=== PATIENT | female | born 1950 | race Caucasian/White ===

== ENCOUNTER 2016-07-25 13:18 | Outpatient (CLI) | payer MEDICARE | END 2016-07-25 13:19 | disposition home or self-care (01) | DX: R00.2 Palpitations (principal) ==

== ENCOUNTER 2016-12-18 13:54 | Outpatient (CLI) | payer MEDICARE | END 2016-12-18 13:55 | disposition home or self-care (01) | LOC: SC 13:54 | PROVIDERS: ATTEND Nurse Practitioner Family | DX: G47.33 Obstructive sleep apnea (adult) (pediatric) (principal) | CPT/HCPCS: 99214; G0463; 99212 ==

== ENCOUNTER 2017-07-17 08:00 | Outpatient (CLI) | payer MEDICARE ==
[2017-07-17 12:59] LABS: ALBUMIN 4.1 g/dL (3.2-5.5); ALBUMIN/GLOBULIN RATIO 1.1 (1.0-2.2); ALKALINE PHOSPHATASE 36 IU/L (42-121); ALT ALANINE AMINOTRANSFERASE 19 IU/L (10-60); AST ASPARTATE AMINOTRANSFERASE 24 IU/L (10-42); BILIRUBIN,TOTAL 0.8 mg/dL (0.2-1.0); BUN - BLOOD UREA NITROGEN 16 mg/dL (6-20); CALCIUM 8.7 mg/dL (8.5-10.3); CARBON DIOXIDE - CO2 27 mmol/L (21-32); CHLORIDE 105 mmol/L (101-111); CHOL/HDL RATIO 3.7 (<4.4); CHOLESTEROL 155 mg/dL; GFR - MDRD 55 (>89); GLUCOSE 98 mg/dL (70-100); HDL CHOLESTEROL 42 mg/dL; LDL CHOLESTEROL,CALCULATED 77 mg/dL; LDL/HDL RATIO 1.8 (<4.4); SODIUM 139 mmol/L (135-145); TOTAL PROTEIN 7.7 g/dL (6.7-8.2); VLDL CHOLESTEROL 36 mg/dL
== END 2017-07-17 08:01 | disposition home or self-care (01) ==
LOC: LAB.WCP 08:00
PROVIDERS: ATTEND Physician Assistant Medical
DX: I10 Essential (primary) hypertension (principal)
CPT/HCPCS: 36415; 80053; 80061; 83721

== ENCOUNTER 2017-12-17 15:51 | Outpatient (CLI) | payer MEDICARE | END 2017-12-17 15:52 | disposition home or self-care (01) | LOC: SC 15:51 | PROVIDERS: ATTEND Nurse Practitioner Family | DX: G47.33 Obstructive sleep apnea (adult) (pediatric) (principal) | CPT/HCPCS: 99214; G0463; 99212 ==

== ENCOUNTER 2018-01-12 12:17 | Outpatient (CLI) | payer MEDICARE | END 2018-01-12 12:18 | disposition home or self-care (01) | LOC: DI 12:17 | PROVIDERS: ATTEND Family Medicine | DX: I48.0 Paroxysmal atrial fibrillation (principal); I77.810 Thoracic aortic ectasia | CPT/HCPCS: 93306 ==

== ENCOUNTER 2018-04-26 09:23 | Outpatient (CLI) | payer MEDICARE ==
--- NOTE | 2018-04-29 10:36 | Mammography Report ---
Reason: SCREENING MAMMO Procedure Date: 04/26/2018 Accession Number: [id number] / [id number] Procedure: MGN - Screening Mammo Dig Bilat CPT Code: FULL RESULT: EXAM: Screening Mammo Dig Bilat DATE: 04/26/2018 9:43 AM CLINICAL HISTORY: 68-year-old female for screening mammogram. TECHNIQUE: Bilateral CC and MLO views were obtained. COMPARISON: 11/23/2015, 08/18/2014, 07/08/2013. FINDINGS: The breasts demonstrate scattered fibroglandular densities bilaterally. No suspicious masses, clustered microcalcifications, or regions of architectural distortion are identified. IMPRESSION: Negative examination RECOMMENDATION: Routine annual screening unless otherwise clinically indicated. BIRADS CATEGORY 1: Negative STANDARD QUALIFYING STATEMENTS: 1. This examination was reviewed with the aid of Computer-Aided Detection (CAD). 2. A negative or benign imaging report should not delay biopsy if clinically suspicious findings are present. Consider surgical consultation if warrented. More than 5% of cancers are not identified by imaging. 3. Dense breasts may obscure an underlying neoplasm. 4. This examination was reviewed without the aid of 3D breast imaging (tomosynthesis).
== END 2018-04-26 09:24 | disposition home or self-care (01) ==
LOC: DI.N 09:23
DX: Z12.31 Encounter for screening mammogram for malignant neoplasm of breast (principal)
CPT/HCPCS: 77067

== ENCOUNTER 2018-11-01 08:00 | Outpatient (CLI) | payer MEDICARE | END 2018-11-01 23:59 | disposition home or self-care (01) | LOC: LAB.WCP 08:00 | PROVIDERS: ATTEND Family Medicine | DX: R39.15 Urgency of urination (principal) | CPT/HCPCS: 87086 ==

== ENCOUNTER 2019-05-23 08:21 | Outpatient (CLI) | payer MEDICARE ==
--- NOTE | 2019-05-26 10:41 | Mammography Report ---
Reason: SCREENING MAMMO Procedure Date: 05/23/2019 Accession Number: [id number] / [id number] Procedure: MGN - Screening Mammo Dig Bilat CPT Code: Final Report FULL RESULT: EXAM: Screening Mammo Dig Bilat DATE: 05/23/2019 8:42 AM CLINICAL HISTORY: The patient is an asymptomatic 68-year-old female with no reported personal or family history of breast cancer. TECHNIQUE: (B) - Bilateral CC and MLO views were obtained. COMPARISON: 04/26/2018, 11/23/2015, 08/18/2014, 07/08/2013 PARENCHYMAL PATTERN: (A) - The breasts demonstrate scattered fibroglandular densities bilaterally. FINDINGS: There are no suspicious masses, calcifications, or areas of distortion. IMPRESSION: Negative examination. BI-RADS category 1. RECOMMENDATION: (ANNUAL) - Recommend routine annual screening mammography. BI-RADS CATEGORY: (1) - Negative. STANDARD QUALIFYING STATEMENTS: 1. This examination was not reviewed with the aid of Computer-Aided Detection (CAD). 2. A negative or benign imaging report should not preclude biopsy if clinically suspicious findings are present. 3. Dense breasts may obscure an underlying neoplasm.
== END 2019-05-23 08:22 | disposition home or self-care (01) ==
LOC: DI.N 08:21
DX: Z12.31 Encounter for screening mammogram for malignant neoplasm of breast (principal)
CPT/HCPCS: 77067

== ENCOUNTER 2019-06-27 08:30 | Outpatient (CLI) | payer MEDICARE ==
[2019-06-27 13:13] LABS: BASOPHILS # (AUTO) 0.1 10^3/uL (0.0-0.1); EOSINOPHILS # (AUTO) 0.2 10^3/uL (0.0-0.7); EOSINOPHILS % (AUTO) 2.4 %; HGB - HEMOGLOBIN 14.2 g/dL (12.0-16.0); LYMPHOCYTES # (AUTO) 1.5 10^3/uL (1.5-3.5); LYMPHOCYTES % (AUTO) 24.1 %; MEAN CORPUSCULAR HEMOGLOBIN 30.5 pg (27.0-31.0); MEAN CORPUSCULAR HGB CONC 31.9 g/dL (32.0-36.0); MEAN CORPUSCULAR VOLUME 95.7 fL (81.0-99.0); MEAN PLATELET VOLUME 11.9 fL (7.9-10.8); MONOCYTES # (AUTO) 0.5 10^3/uL (0.0-1.0); MONOCYTES % (AUTO) 7.4 %; NEUTROPHILS % (AUTO) 64.8 %; PLT - PLATELET COUNT 255 10^3/uL (130-450); RED BLOOD COUNT 4.65 10^6/uL (4.20-5.40); RED CELL DISTRIBUTION WIDTH 13.5 % (12.0-15.0); WHITE BLOOD COUNT 6.2 x10^3/uL (4.8-10.8)
[2019-06-27 14:03] LABS: ALBUMIN 4.1 g/dL (3.2-5.5); ALBUMIN/GLOBULIN RATIO 1.1 (1.0-2.2); ALKALINE PHOSPHATASE 37 IU/L (42-121); ALT ALANINE AMINOTRANSFERASE 15 IU/L (10-60); AST ASPARTATE AMINOTRANSFERASE 19 IU/L (10-42); BILIRUBIN,TOTAL 0.7 mg/dL (0.2-1.0); BUN - BLOOD UREA NITROGEN 15 mg/dL (6-20); CALCIUM 9.1 mg/dL (8.5-10.3); CARBON DIOXIDE - CO2 28 mmol/L (21-32); CHLORIDE 104 mmol/L (101-111); CHOL/HDL RATIO 3.5 (<4.4); CHOLESTEROL 152 mg/dL; CREATININE 1.1 mg/dL (0.4-1.0); GFR - MDRD 49 (>89); GLUCOSE 100 mg/dL (70-100); HDL CHOLESTEROL 44 mg/dL; LDL CHOLESTEROL,CALCULATED 74 mg/dL; LDL/HDL RATIO 1.7 (<4.4); SODIUM 137 mmol/L (135-145); TOTAL PROTEIN 7.8 g/dL (6.7-8.2); VLDL CHOLESTEROL 34 mg/dL
== END 2019-06-27 23:59 | disposition home or self-care (01) ==
LOC: LAB.WCP 08:30
PROVIDERS: ATTEND Physician Assistant Medical
DX: I10 Essential (primary) hypertension (principal); E78.1 Pure hyperglyceridemia; I48.0 Paroxysmal atrial fibrillation
CPT/HCPCS: 36415; 80053; 80061; 83721; 84443; 85025

== ENCOUNTER 2020-05-17 11:00 | Outpatient (CLI) | payer MEDICARE ==
[2020-05-17 18:42] LABS: BASOPHILS # (AUTO) 0.1 10^3/uL (0.0-0.1); BASOPHILS % (AUTO) 1.1 %; EOSINOPHILS # (AUTO) 0.2 10^3/uL (0.0-0.7); EOSINOPHILS % (AUTO) 2.8 %; HGB - HEMOGLOBIN 14.5 g/dL (12.0-16.0); LYMPHOCYTES # (AUTO) 1.6 10^3/uL (1.5-3.5); LYMPHOCYTES % (AUTO) 29.1 %; MEAN CORPUSCULAR HEMOGLOBIN 30.7 pg (27.0-31.0); MEAN CORPUSCULAR HGB CONC 31.2 g/dL (32.0-36.0); MEAN CORPUSCULAR VOLUME 98.3 fL (81.0-99.0); MEAN PLATELET VOLUME 11.6 fL (7.9-10.8); MONOCYTES # (AUTO) 0.4 10^3/uL (0.0-1.0); MONOCYTES % (AUTO) 7.9 %; NEUTROPHILS # (AUTO) 3.1 10^3/uL (1.5-6.6); NEUTROPHILS % (AUTO) 58.9 %; PLT - PLATELET COUNT 269 10^3/uL (130-450); RED BLOOD COUNT 4.73 10^6/uL (4.20-5.40); RED CELL DISTRIBUTION WIDTH 13.2 % (12.0-15.0); WHITE BLOOD COUNT 5.3 x10^3/uL (4.8-10.8)
[2020-05-17 19:06] LABS: BUN - BLOOD UREA NITROGEN 15 mg/dL (6-20); CALCIUM 9.2 mg/dL (8.5-10.3); CARBON DIOXIDE - CO2 28 mmol/L (21-32); CHLORIDE 102 mmol/L (101-111); CHOL/HDL RATIO 3.6 (<4.4); CHOLESTEROL 175 mg/dL; GLUCOSE 95 mg/dL (70-100); HDL CHOLESTEROL 48 mg/dL; LDL CHOLESTEROL,CALCULATED 90 mg/dL; LDL/HDL RATIO 1.9 (<4.4); SODIUM 140 mmol/L (135-145); VLDL CHOLESTEROL 37 mg/dL
== END 2020-05-17 23:59 | disposition home or self-care (01) ==
LOC: LAB.WCP 11:00
PROVIDERS: ATTEND Internal Medicine Cardiovascular Disease
DX: I10 Essential (primary) hypertension (principal); E78.5 Hyperlipidemia, unspecified
CPT/HCPCS: 36415; 80048; 80061; 83721; 85025

== ENCOUNTER 2020-06-14 15:20 | Outpatient (CLI) | payer MEDICARE ==
--- NOTE | 2020-06-15 09:54 | Mammography Report ---
BILATERAL DIGITAL SCREENING MAMMOGRAM 3D/2D: 06/14/2020 CLINICAL: Routine screening. Comparison is made to exams dated: 05/23/2019 mammogram, 04/26/2018 mammogram, 11/23/2015 mammogram, mammogram, 07/08/2013 mammogram, and 07/17/2012 mammogram - [facility]. The re are scattered fibroglandular elements in both breasts. No significant masses, calcifications, or other findings are seen in either breast. There has been no significant interval change. IMPRESSION: NEGATIVE There is no mammographic evidence of malignancy. A 1 year screening mammogram is recommended. This exam was interpreted at Station ID: [id number]. NOTE: For mammograms, a report in lay terms will be sent to the patient. Approximately 15% of breast malignancies will not be visualized mammographically. In the management of a palpable breast mass, a negative mammogram must not discourage biopsy of a clinically suspicious lesion. Electronically Signed By: Sudheer quintana/fer:06/14/2020 16:18:34 ACR BI-RADS Category 1: Negative 3341F PARENCHYMAL PATTERN: (A) - The breast(s) demonstrate(s) scattered fibroglandular densities. BI-RADS CATEGORY: (1) - 1 RECOMMENDATION: (ANNUAL) - Recommend routine annual screening mammography. [id number] 1 year screening LATERALITY: (B)
== END 2020-06-14 15:21 | disposition home or self-care (01) ==
LOC: DI.N 15:20
DX: Z12.31 Encounter for screening mammogram for malignant neoplasm of breast (principal)
CPT/HCPCS: 77067

== ENCOUNTER 2020-06-28 13:43 | Outpatient (CLI) | payer MEDICARE ==
--- NOTE | 2020-06-28 14:25 | SLEEP CARE CONSULTATION ---
Information from patient questionnaire entered by Iliana Persaud. I have reviewed and concur with the information entered by Iliana Persaud. This document represents the service I personally performed and the decisions made by me, Ashly Lopez MD, [facility] [place] History of Present Illness Service Date and Time: 06/28/2020 1343 Previous diagnosis: Moderate, Obstructive Sleep Apnea-Hypopnea Syndrome AHI: 18.8 Reason for follow up: annual (Last seen 11/2017) Equipment type: BiPAP Equipment obtained from: [employer] Year and Where: [address] [facility] Type of Sleep Study: Polysomnography HPI additional information: HPI: Ms. Carrera returned today for annual follow up of BiPAP therapy. She was diagnosed to have moderate obstructive sleep apnea-hypopnea syndrome. The patient gets her supplies from [employer]. She wears a Respironics Wisp nasal mask. She continues to use the device nightly and all through the night. The c ompliance report shows usage in 28 nights out of the past 30 nights, averaging 7.6 hours a night. The > 4 hour compliance rate for the past 365 days is 93%. She complained of no particular problem with the device such as soreness on the face, dry nose, epistaxis, nasal congestion or headache. She thinks that the pressure of 14/8 cmH2O is comfortable. On the CPAP therapy she notices improvement in her sleep quality, and that she wakes up feeling fresher in the morning and more awake/alert during the day. [place] Sleepiness Scale score is 3. The average residual AHI is 0.4; and average time in large leak per day is 28 seconds. Subjective Initial [place] Sleepiness Scale score: 7 (in 2013) Allergies and Home Medications Drug allergies reviewed: Yes Home medication list reviewed: Yes Review of Systems Review of systems same as previous: Yes Physical Exam Vital signs obtained and entered by: To minimize the risk of COVID-19 exposure, detailed exam was not performed. Height: 5 ft 8 in Weight: 280 lb Body Mass Index: 42.5 BMI Classification: Morbidly Obese Impression and Plan IMPRESSION: 1. Obstructive Sleep Apnea-Hypopnea Syndrome, moderate (AHI was 18.1 in 2000) with the patient continuing to do well on nasal CPAP therapy. She has excellent compliance and significant clinical improvement. The current pressure appears effective and comfortable. Overall, she is very satisfied with treatment and plans to continue with it long-term. Because her BiPAP is now older than the useful life of 5 years, I will order the patient a new one and set it at 14/8 cmH2O. PLAN: 1. Prescription made for a BiPAP, heated humidifier, and related supplies. 2. Try to lose weight 3. Try ResMed N30i mask and Respironics DreamWisp nasal mask 4. Return for follow up after one month on the new machine. Visit Type: In Office Time Spent with Patient (minutes): 15 Provider Statement: I spent 100% of the Face to Face Visit with the patient with greater than 50% spent counseling the patient and coordination of care.
== END 2020-06-28 13:44 | disposition home or self-care (01) ==
LOC: SC 13:43
PROVIDERS: ATTEND Internal Medicine Pulmonary Disease
DX: G47.33 Obstructive sleep apnea (adult) (pediatric) (principal); E66.01 Morbid (severe) obesity due to excess calories; Z68.41 Body mass index [BMI] 40.0-44.9, adult
CPT/HCPCS: 99213; G0463; 99212

== ENCOUNTER 2020-07-09 08:00 | Outpatient (CLI) | payer MEDICARE | END 2020-07-09 23:59 | LOC: LAB.R 08:00 | PROVIDERS: ATTEND Physician Assistant Medical | DX: N39.41 Urge incontinence (principal) | CPT/HCPCS: 87086 ==

== ENCOUNTER 2020-08-16 08:40 | Outpatient (CLI) | payer MEDICARE ==
--- NOTE | 2020-08-16 12:13 | SLEEP CARE CONSULTATION ---
Information from patient questionnaire entered by Enid Pacheco. I have reviewed and concur with the information entered by Enid Pacheco. This document represents the service I personally performed and the decisions made by me, Ashly Lopez MD, [facility]. History of Present Illness Service Date and Time: 08/16/2020 0840 Previous diagnosis: Moderate, Obstructive Sleep Apnea-Hypopnea Syndrome AHI: 18.8 (in 2000) Reason for follow up: first compliance after device update Equipment type: BiPAP Equipment obtained from: [employer] Mask style: Nasal Prior sleep studies: Yes Year and Where: 2000 - [facility] Type of Sleep Study: Polysomnography HPI additional information: HPI: Ms. Carrera returned today for follow up of nasal CPAP therapy. She was diagnosed to have moderate obstructive sleep apnea-hypopnea syndrome. The patient recently acquired a new BiPAP from [employer] and fitted with a ResMed N30i mask. She went back to using her old Respironics Wisp nasal mask. She could not remember why she did that. She reports using the device nightly and all through the night. The compliance report shows usage in 30 nights out of the past 30 nights, averaging 6.6 hours a night. The > 4 hour compliance rate for the past 30 days is 93%. She complained of no particular problem with the device such as soreness on the face, dry nose, epistaxis, nasal congestion or headache. She thinks that the pressure of 14/8 cmH2O is a little too high requiring her to use the ramp setting.. On the CPAP therapy she notices improvement in her sleep quality, and that she wakes up feeling fresher in the morning and more awake/alert during the day. The [place] Sleepiness Scale score 1. The average residual AHI is 0.3; and air leak, 2 L/min. CPAP Compliance Data - Data Reviewed with Patient Average duration of nightly device use: 6 hr 34 min Compliance rate %: 93 Current pressure setting (cmH2O): 14/8 Humidity settin Average residual AHI: 0.3 Subjective Current pressure setting perceived as: comfortable Initial [place] Sleepiness Scale score: 7 (in 2013) Current [place] Sleepiness Scale score: 1 Allergies and Home Medications Drug allergies reviewed: Yes Home medication list reviewed: Yes Review of Systems Review of systems same as previous: Yes Physical Exam Height: 5 ft 8 in Weight: 280 lb Body Mass Index: 42.5 BMI Classification: Morbidly Obese Impression and Plan IMPRESSION: 1. Obstructive Sleep Apnea-Hypopnea Syndrome, moderate (AHI was 18.8 in 2000 at [facility]) with the patient doing well on BiPAP therapy. She has excellent compliance and significant clinical improvement. The current pressure appears effective and comfortable. Overall, she is very satisfied with treatment and plans to continue with it long-term. Because the residual AHI is very low, I will lower the pressure range a little for increased comfort. PLAN: 1. Lower BiPAP to 12/6 cmH2O. 2. Try to lose weight 3. Try the ResMed N30i mask again. 4. Return in one year for follow up or earlier if there is any problem with the treatment. Counseling Topics: Weight control Visit Type: In Office Time Spent with Patient (minutes): 20 Provider Statement: I spent 100% of the Face to Face Visit with the patient with greater than 50% spent counseling the patient and coordination of care.
== END 2020-08-16 08:41 | disposition home or self-care (01) ==
LOC: SC 08:40
PROVIDERS: ATTEND Internal Medicine Pulmonary Disease
DX: G47.33 Obstructive sleep apnea (adult) (pediatric) (principal); E66.01 Morbid (severe) obesity due to excess calories; Z68.41 Body mass index [BMI] 40.0-44.9, adult
CPT/HCPCS: 99213; G0463; 99212

== ENCOUNTER 2021-01-26 14:41 | Outpatient (CLI) | payer MEDICARE ==
[2021-01-26 17:49] LABS: BASOPHILS # (AUTO) 0.1 10^3/uL (0.0-0.1); BASOPHILS % (AUTO) 1.1 %; EOSINOPHILS # (AUTO) 0.2 10^3/uL (0.0-0.7); EOSINOPHILS % (AUTO) 2.3 %; HCT - HEMATOCRIT 45.9 % (37.0-47.0); HGB - HEMOGLOBIN 14.3 g/dL (12.0-16.0); LYMPHOCYTES # (AUTO) 1.9 10^3/uL (1.5-3.5); LYMPHOCYTES % (AUTO) 25.7 %; MEAN CORPUSCULAR HEMOGLOBIN 29.9 pg (27.0-31.0); MEAN CORPUSCULAR HGB CONC 31.2 g/dL (32.0-36.0); MEAN PLATELET VOLUME 12.1 fL (7.9-10.8); MONOCYTES # (AUTO) 0.7 10^3/uL (0.0-1.0); MONOCYTES % (AUTO) 8.8 %; NEUTROPHILS # (AUTO) 4.7 10^3/uL (1.5-6.6); NEUTROPHILS % (AUTO) 61.7 %; PLT - PLATELET COUNT 262 10^3/uL (130-450); RED BLOOD COUNT 4.78 10^6/uL (4.20-5.40); WHITE BLOOD COUNT 7.5 x10^3/uL (4.8-10.8)
[2021-01-26 18:01] LABS: ALBUMIN 4.2 g/dL (3.2-5.5); ALBUMIN/GLOBULIN RATIO 1.1 (1.0-2.2); BILIRUBIN,TOTAL 0.8 mg/dL (0.2-1.0); CALCIUM 9.4 mg/dL (8.5-10.3); POTASSIUM 4.8 mmol/L (3.5-5.0); TOTAL PROTEIN 8.2 g/dL (6.7-8.2)
[2021-01-26 18:13] LABS: CREATININE 1.2 mg/dL (0.4-1.0)
[2021-01-26 18:59] LABS: BILIRUBIN,URINE NEGATIVE (NEGATIVE); GLUCOSE, URINE (UA) NEGATIVE (NEGATIVE); KETONES,URINE (UA) NEGATIVE (NEGATIVE); LEUKOCYTE ESTERASE, URINE SMALL (NEGATIVE); NITRITE,URINE NEGATIVE (NEGATIVE); OCCULT BLOOD,URINE NEGATIVE (NEGATIVE); PROTEIN,URINE NEGATIVE (NEGATIVE); UROBILINOGEN,URINE 0.2 (NORMAL) E.U./dL (NORMAL)
[2021-01-26 19:05] LABS: CLARITY,URINE HAZY (CLEAR)
[2021-01-26 19:18] LABS: BACTERIA,URINE Moderate /HPF (None Seen); CRYSTALS,URINE 11-25 Ca Oxalate /LPF; MUCUS,URINE Moderate Strands; RBC,URINE 0-5 /HPF (0-5); SQUAMOUS EPITHELIAL CELL,UR MANY Squamous (<= Few); WBC,URINE 0-3 /HPF (0-5)
== END 2021-01-26 23:59 | disposition home or self-care (01) ==
LOC: LAB.N 14:41
PROVIDERS: ATTEND Nurse Practitioner
DX: R10.9 Unspecified abdominal pain (principal)
CPT/HCPCS: 36415; 80053; 81001; 82150; 83690; 85025; 87086

== ENCOUNTER 2021-04-30 10:33 | Outpatient (CLI) | payer MEDICARE | END 2021-04-30 10:34 | disposition critical access hospital (66) | LOC: EMS 10:33 | DX: M79.601 Pain in right arm (principal) | CPT/HCPCS: A0425; A0427 ==

== ENCOUNTER 2021-04-30 10:54 | Emergency (ER) | payer MEDICARE ==
--- NOTE | 2021-04-30 11:45 | XRAY Report ---
PROCEDURE: Chest 1 View X-Ray INDICATIONS: Chest pain TECHNIQUE: One view of the chest was acquired. COMPARISON: None FINDINGS: Surgical changes and devices: None. Lungs and pleura: On the semiupright images, no large pneumothorax or large pleural effusions can be seen. No focal infiltrates are seen. Low lung volumes can be seen, causing a crowded appearance to the lung markings. Mediastinum: The aorta is prominent and tortuous. The cardiac contours are within normal limits. Bones and chest wall: No suspicious bony lesions. Overlying soft tissues appear unremarkable. IMPRESSION: Limited portable chest examination, without an acute abnormality identified. Reviewed by: Sae Barillas MD on 04/30/2021 10:44 AM SARAH Approved by: Sae Barillas MD on 04/30/2021 10:44 AM SARAH Station ID: [id number]
[2021-04-30 11:51] LABS: BASOPHILS # (AUTO) 0.1 10^3/uL (0.0-0.1); BASOPHILS % (AUTO) 1.4 %; EOSINOPHILS # (AUTO) 0.1 10^3/uL (0.0-0.7); EOSINOPHILS % (AUTO) 2.5 %; HCT - HEMATOCRIT 38.3 % (37.0-47.0); LYMPHOCYTES # (AUTO) 1.2 10^3/uL (1.5-3.5); MEAN CORPUSCULAR HEMOGLOBIN 29.8 pg (27.0-31.0); MEAN CORPUSCULAR HGB CONC 31.3 g/dL (32.0-36.0); MEAN PLATELET VOLUME 11.4 fL (7.9-10.8); MONOCYTES # (AUTO) 0.4 10^3/uL (0.0-1.0); MONOCYTES % (AUTO) 7.3 %; NEUTROPHILS # (AUTO) 3.7 10^3/uL (1.5-6.6); NEUTROPHILS % (AUTO) 66.6 %; PLT - PLATELET COUNT 242 10^3/uL (130-450); RED BLOOD COUNT 4.03 10^6/uL (4.20-5.40); RED CELL DISTRIBUTION WIDTH 13.6 % (12.0-15.0); WHITE BLOOD COUNT 5.6 x10^3/uL (4.8-10.8)
[2021-04-30] MEDS ORDERED: HYDROmorphone 1 MG/ML CARPUJECT IVP STA (11:55)
--- NOTE | 2021-04-30 11:55 | ED Physician Documentation ---
History of Present Illness - Stated complaint Stated Complaint: CHEST PRESSURE - Chief complaint Chief Complaint: Cardiac - Additonal information Additional information: 71-year-old female presents the emergency department for evaluation of chest and arm discomfort. She reports that for much of yesterday she noticed that she had some right arm pain as well some intermittent tingling in the right arm. However this morning she began to have some chest pressure that radiated to her left arm. No nausea or vomiting. No jaw pain. No history of similar in the past. She does not feel that the symptoms got worse with activity or improved with rest. She does have a history of hypertension and hyperlipidemia. She is obese. No tobacco or alcohol use denies any previous history of coronary artery disease. She was at a sikhism bizarre this morning when she began to develop the chest pressure thus 911 was summoned. She was given 325 of aspirin by EMS. She is free of chest pain at this time but continues to endorse right arm discomfort. She does have a rib stiffener and heel dipper Dr. Murillo that she saw a few years ago because she was having an irregular heart rate. Reports a Holter monitor showed nothing abnormal. She did have an echocardiogram in 2018 That showed an ejection fraction of 55 to 60%. It did note a sending aorta dilation of 4.5 cm. Meds: Metoprolol, lisinopril, lovastatin, gabapentin. Review of Systems Constitutional: denies: Fever, Chills Eyes: reports: Reviewed and negative Ears: reports: Reviewed and negative Nose: reports: Reviewed and negative Throat: reports: Reviewed and negative Cardiac: reports: Chest pain / pressure. 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 - Present Medications Home Medications: Ambulatory Orders Medication Instructions Recorded Confirmed Atenolol 50 mg PO DAILY 01/07/16 01/10/16 Gabapentin 200 mg PO DAILY 01/07/16 01/10/16 Multivitamin [Multivitamins] 1 each PO DAILY 01/07/16 01/10/16 Lovastatin [Altoprev] 20 mg PO DAILY 01/10/16 01/10/16 - Allergies Allergies/Adverse Reactions: Allergies Allergy/AdvReac Type Severity Reaction Status Date / Time No Known Drug Allergies Allergy Verified 04/30/21 11:16 PD ED PE NORMAL - General General: Alert and oriented X 3, No acute distress, Well developed/nourished, Other (Obese) - HEENT HEENT: PERRL - Neck Neck: Supple, no meningeal sign - Cardiac Cardiac: RRR, No murmur - Respiratory Respiratory: Clear bilaterally - Abdomen Abdomen: Normal bowel sounds, Soft, Non tender, Non distended Results - Vitals Vitals: Vital Signs - 24 hr 04/30/21 04/30/21 04/30/21 11:13 13:16 13:30 Temperature Heart Rate 57 L 52 L 51 L Respiratory 10 L 13 14 Rate Blood Pressure 179/97 H 156/77 H 160/77 H O2 Saturation 98 96 91 L 04/30/21 04/30/21 14:00 14:30 Temperature 36.6 C Heart Rate 63 54 L Respiratory 14 18 Rate Blood Pressure 165/88 H 165/88 H O2 Saturation 97 98 Oxygen O2 Source Room air - EKG (time done) 1107 Rate: Rate (enter#) (60) Rhythm: NSR Gladys: Normal Intervals: Normal HI QRS: Low voltage Ischemia: Normal ST segments Compare to prior EKG: Old EKG unavailable Computer interpretation: Agree with computer - Labs Labs: Laboratory Tests 04/30/21 04/30/21 04/30/21 11:32 11:32 11:32 WBC 5.6 RBC 4.03 L Hgb 12.0 Hct 38.3 MCV 95.0 MCH 29.8 MCHC 31.3 L RDW 13.6 Plt Count 242 MPV 11.4 H Neut # (Auto) 3.7 Lymph # (Auto) 1.2 L Teller # (Auto) 0.4 Eos # (Auto) 0.1 Baso # (Auto) 0.1 Absolute Nucleated RBC 0.00 Nucleated RBC % 0.0 Sodium Potassium Chloride Carbon Dioxide Anion Gap BUN Creatinine Estimated GFR (MDRD) Glucose Calcium Total Bilirubin AST ALT Alkaline Phosphatase Troponin I High Sens 5.4 B-Natriuretic Peptide Total Protein Albumin Globulin Albumin/Globulin Ratio Lipase TSH 1.08 04/30/21 04/30/21 04/30/21 11:45 11:45 14:24 WBC RBC Hgb Hct MCV MCH MCHC RDW Plt Count MPV Neut # (Auto) Lymph # (Auto) Teller # (Auto) Eos # (Auto) Baso # (Auto) Absolute Nucleated RBC Nucleated RBC % Sodium 143 Potassium 4.0 Chloride 107 Carbon Dioxide 27 Anion Gap 9.0 BUN 14 Creatinine 1.0 Estimated GFR (MDRD) 54 L Glucose 106 H Calcium 9.1 Total Bilirubin 0.8 AST 21 ALT 12 Alkaline Phosphatase 38 L Troponin I High Sens 6.1 B-Natriuretic Peptide 53 Total Protein 7.1 Albumin 3.9 Globulin 3.2 Albumin/Globulin Ratio 1.2 Lipase 34 TSH - Rads (name of study) CXR Radiology: Final report received (Limited portable chest x-ray without acute abnormalities) CT chest ao protocol Radiology: Final report received (Mild aneurysmal ascending thoracic aorta measuring 4.4 cm transversely. No findings of acute thoracic aortic abnormality. No findings of pulmonary embolism can be seen.) PD MEDICAL DECISION MAKING - ED course Complexity details: reviewed results, re-evaluated patient, d/w patient, d/w risk consultant (Allison Pagan cardiology) ED course: 71-year-old female presents emergency department for evaluation of right arm discomfort that began yesterday. However this morning she had chest pressure with radiation to the left arm. She carries a history of hyperlipidemia, hypertension as well as obesity. No tobacco use. Screening EKG is nonischemic. Initial high-sensitivity troponin is also negative. Historically it appears that she does have a mildly dilated ascending aortic aneurysm. Given the new symptomatology CT angio of the chest with aorta protocol was completed. No acute findings in the chest. We do again note to the mildly dilated a sending aortic aneurysm at 4.4 cm. This is approximately the same size as seen on echocardiogram completed nearly 3 years ago. Patient however does have a heart score of 5. I discussed her case with on-call rib stiffener and heel dipper Dr. Orlin Pagan (substation electrician supervisor for Dr. Murillo) He would recommend 2 troponins. If negative stable for discharge home to follow-up with Dr. Kashmir mills soon as possible to schedule an repeat echocardiogram and stress test. Second troponin is indeed negative. Patient is advised to begin taking a daily aspirin. Emergent return precautions were otherwise discussed for worsening symptoms Departure - Departure Disposition: Home, Self Care Clinical Impression: Aortic aneurysm Qualifiers: Aortic location: thoracic aorta Presence of rupture: without rupture Qualified Code(s): I71.2 - Thoracic aortic aneurysm, without rupture Chest pain Qualifiers: Chest pain type: unspecified Qualified Code(s): R07.9 - Chest pain, unspecified Condition: Stable Record reviewed to determine appropriate education?: Yes Instructions: ED Chest Pain Atypical Unkn Cause Follow-Up: Susanna Murillo MD [Physician No Access] - Comments: Jenny danielson were seen today in the emergency department for chest pain and right arm discomfort. Your screening EKG does not show signs of having a heart attack and your labs do not show any worrisome findings. However you do have a history of an ascending aortic aneurysm. We did do a CT of the chest today that again demonstrates the aneurysm however it has not changed in size over the last few years. Your case was discussed with Dr. Orlin Pagan on-call for Dr. Murillo. He would recommend close follow-up with Dr. Marlow for a repeat echocardiogram and cardiac stress test. We do recommend that you begin taking a daily aspirin 81 mg. If you have worsening symptoms, any fainting episodes, severe chest pain then please return immediately to the ER for a second evaluation.
[2021-04-30] MEDS ORDERED: IOVERSOL 320 100 ML VIAL IVP ONE ×2 (12:10→13:07)
[2021-04-30 12:23] LABS: ALBUMIN 3.9 g/dL (3.2-5.5); ALBUMIN/GLOBULIN RATIO 1.2 (1.0-2.2); BILIRUBIN,TOTAL 0.8 mg/dL (0.2-1.0); CALCIUM 9.1 mg/dL (8.5-10.3); TOTAL PROTEIN 7.1 g/dL (6.7-8.2)
--- NOTE | 2021-04-30 13:30 | CT Report ---
PROCEDURE: ANGIO CHEST W/WO INDICATIONS: chest pain; hx of dilated ascending aorta CONTRAST: IV CONTRAST: Optiray 320 ml: 100 PO CONTRAST: *NO PO CONTRAST TECHNIQUE: Precontrast images were obtained. After the administration of intravenous contrast, 2 mm axial images were acquired from the pulmonary apices to the posterior costophrenic angles during the arterial phase. In addition, 1 mm lung kernel and 5 mm soft tissue kernel reconstructions were performed. 3-dimensional coronal oblique maximum int ensity projection (MIP) reformats, 8 mm axial MIP, and 5 mm coronal and sagittal MPR reformats were t hen performed through the thorax. For radiation dose reduction, the following was used: automated exp osure control, adjustment of mA and/or kV according to patient size. COMPARISON: Correlation is made with chest plain film performed earlier in the day. FINDINGS: Image quality: Excellent. Pulmonary arteries: Pulmonary arteries are normal in size, and demonstrate no intraluminal filling d efects to suggest central pulmonary embolism. Lungs and pleura: Mild dependent atelectasis can be seen. No pleural effusions or pneumothorax. Cent ral and peripheral airways are patent. Mediastinum: The ascending thoracic aorta is mildly aneurysmal measuring 4.4 cm transversely, as deuce sured on coronal images. The aortic arch and the descending thoracic aorta demonstrate normal caliber . No abnormalities of the great vessels with a subclavian arteries are detected. The visualized abdom inal aorta is likewise unremarkable. On precontrast imaging, no mural hematomas can be seen. Heart size is normal, without pericardial effusion. No mediastinal or hilar adenopathy. Esophagus i s normal in caliber, without hiatal hernia. Bones and chest wall: No suspicious bony lesions. Age-appropriate degenerative changes are seen. Mi nimal levoconvex sclerotic curvature is seen. Ribs and thoracic spine appear intact throughout. No a xillary or supraclavicular adenopathy. The thyroid is normal in size and there are no incidental fin dings. Abdomen: Cholecystectomy clips are seen. Visualized upper abdominal solid organs appear normal in the early arterial phase of enhancement. IMPRESSION: Mildly aneurysmal ascending thoracic aorta measuring 4.4 cm transversely. No findings of acute thoracic aortic abnormality can be seen. No findings of pulmonary embolism can be seen. Incidental note is made of: Cholecystectomy Reviewed by: Sae Barillas MD on 04/30/2021 12:29 PM AKDT Approved by: Sae Barillas MD on 04/30/2021 12:29 PM SARAH Station ID: [id number]
[2021-04-30 15:10] VITALS: BP 146/90
== END 2021-04-30 15:10 | disposition home or self-care (01) ==
LOC: EDUNIT# → ED 10:54
DX: I71.2 Thoracic aortic aneurysm, without rupture (principal); R07.89 Other chest pain; I10 Essential (primary) hypertension; E78.5 Hyperlipidemia, unspecified; E66.9 Obesity, unspecified; Z68.41 Body mass index [BMI] 40.0-44.9, adult
CPT/HCPCS: 36415; 71045; 71275; 80053; 83690; 83880; 84443; 84484; 85025; 93005; 96374; 99283; 99284; J1170; Q9967

== ENCOUNTER 2021-07-21 12:19 | Outpatient (CLI) | payer MEDICARE ==
--- NOTE | 2021-07-22 12:30 | Mammography Report ---
BILATERAL DIGITAL SCREENING MAMMOGRAM 3D/2D: 07/21/2021 CLINICAL: Routine screening. Comparison is made to exams dated: 06/14/2020 mammogram, 05/23/2019 mammogram, 04/26/2018 mammogram, 11/23/2015 mammogram, 08/18/2014 mammogram, and 07/08/2013 mammogram - [facility]. Th ere are scattered fibroglandular elements in both breasts. No significant masses, calcifications, or other findings are seen in either breast. There has been no significant interval change. IMPRESSION: NEGATIVE There is no mammographic evidence of malignancy. A 1 year screening mammogram is recommended. This exam was interpreted at Station ID: [id number]. NOTE: For mammograms, a report in lay terms will be sent to the patient. Approximately 15% of breast malignancies will not be visualized mammographically. In the management of a palpable breast mass, a negative mammogram must not discourage biopsy of a clinically suspicious lesion. Electronically Signed By: Nayan Wu acr/penrad:07/21/2021 13:00:21 ACR BI-RADS Category 1: Negative 3341F PARENCHYMAL PATTERN: (A) - The breast(s) demonstrate(s) scattered fibroglandular densities. BI-RADS CATEGORY: (1) - 1 RECOMMENDATION: (ANNUAL) - Recommend routine annual screening mammography. [id number] 1 year screening LATERALITY: (B)
== END 2021-07-21 12:20 | disposition home or self-care (01) ==
LOC: DI.N 12:19
DX: Z12.31 Encounter for screening mammogram for malignant neoplasm of breast (principal)

== ENCOUNTER 2021-10-08 09:40 | Outpatient (CLI) | payer MEDICARE ==
--- NOTE | 2021-10-08 11:10 | XRAY Report ---
PROCEDURE: Cervical Spine w/Flex/Ext INDICATIONS: WEAKNESS IN BOTH ARMS TECHNIQUE: 7 total views of the cervical spine were acquired, including flexion and extension views a nd bilateral oblique views. COMPARISON: None. FINDINGS: Bones: No fractures or dislocations to the superior T1 level. No suspicious bony lesions. On the neutral image, there is straightening of the normal cervical lordosis. On flexion and extensio n views, there is limited range of motion, without abnormal subluxation. On oblique images, there is mild neuroforaminal narrowing seen on the right at the C3-C4 and C4-C5 le vels, with at least moderate neuroforaminal narrowing seen at C5-C6 and C6-C7. On the left, there is at least moderate neuroforaminal narrowing seen at the C4-C5, C5-C6, and C6-C7 levels. There is moderate disc space narrowing seen at the C3-C4 level and the C5-C6 level, with mild disc sp óscar narrowing seen at C4-C5 and C6-C7. Soft tissues: Prevertebral soft tissues are normal in thickness. The visualized pulmonary apices a re unremarkable. IMPRESSION: Cervical spine degenerative changes are seen, which are worst inferiorly. Limited range of motion, without abnormal subluxation. If it would be helpful for clinical management decision making, please consider a dedicated cervical spine MRI for further evaluation (assuming that there is no contraindication). Reviewed by: Sae Barillas MD on 10/08/2021 10:08 AM SARAH Approved by: Sae Barillas MD on 10/08/2021 10:08 AM SARAH Station ID: [id number]
== END 2021-10-08 09:41 | disposition home or self-care (01) ==
LOC: DI.N 09:40
PROVIDERS: ATTEND Physician Assistant
DX: M50.31 Other cervical disc degeneration, high cervical region (principal); M48.02 Spinal stenosis, cervical region; I10 Essential (primary) hypertension; R53.83 Other fatigue; R73.9 Hyperglycemia, unspecified
CPT/HCPCS: 36415; 80053; 81599; 82607; 82728; 83036; 83540; 84443; 84466; 85025

== ENCOUNTER 2021-10-08 09:47 | Outpatient (CLI) | payer MEDICARE ==
[2021-10-08 14:13] LABS: BASOPHILS # (AUTO) 0.1 10^3/uL (0.0-0.1); BASOPHILS % (AUTO) 1.4 %; EOSINOPHILS # (AUTO) 0.3 10^3/uL (0.0-0.7); EOSINOPHILS % (AUTO) 4.8 %; HCT - HEMATOCRIT 40.4 % (37.0-47.0); HGB - HEMOGLOBIN 12.5 g/dL (12.0-16.0); LYMPHOCYTES # (AUTO) 1.7 10^3/uL (1.5-3.5); LYMPHOCYTES % (AUTO) 26.7 %; MEAN CORPUSCULAR HEMOGLOBIN 27.7 pg (27.0-31.0); MEAN CORPUSCULAR HGB CONC 30.9 g/dL (32.0-36.0); MEAN CORPUSCULAR VOLUME 89.4 fL (81.0-99.0); MEAN PLATELET VOLUME 11.6 fL (7.9-10.8); MONOCYTES # (AUTO) 0.6 10^3/uL (0.0-1.0); MONOCYTES % (AUTO) 9.2 %; NEUTROPHILS # (AUTO) 3.8 10^3/uL (1.5-6.6); NEUTROPHILS % (AUTO) 57.7 %; PLT - PLATELET COUNT 318 10^3/uL (130-450); RED BLOOD COUNT 4.52 10^6/uL (4.20-5.40); RED CELL DISTRIBUTION WIDTH 15.9 % (12.0-15.0); WHITE BLOOD COUNT 6.5 x10^3/uL (4.8-10.8)
[2021-10-08 14:39] LABS: ALBUMIN/GLOBULIN RATIO 0.9 (1.0-2.2); BILIRUBIN,TOTAL 0.4 mg/dL (0.2-1.0); CREATININE 1.1 mg/dL (0.4-1.0); POTASSIUM 4.1 mmol/L (3.5-5.0); TOTAL PROTEIN 8.4 g/dL (6.7-8.2)
[2021-10-08 14:45] LABS: THYROID STIMULATING HORMONE 1.53 uIU/mL (0.34-5.60)
[2021-10-08 14:52] LABS: FERRITIN 9.3 ng/mL (11.0-306.8)
== END 2021-10-08 09:48 | disposition home or self-care (01) ==
LOC: LAB.N 09:47
PROVIDERS: ATTEND Physician Assistant
DX: I10 Essential (primary) hypertension (principal); R53.83 Other fatigue; R73.9 Hyperglycemia, unspecified
CPT/HCPCS: 36415; 80053; 81599; 82607; 82728; 83036; 83540; 84443; 84466; 85025

== ENCOUNTER 2021-12-06 11:57 | Outpatient (CLI) | payer MEDICARE ==
[2021-12-06 12:18] LABS: CREATININE 1.1 mg/dL (0.4-1.0)
[2021-12-06] MEDS ORDERED: GADOBUTROL 15 MMOL/15 ML VIAL ONE (12:38)
--- NOTE | 2021-12-06 16:23 | MRI Report ---
PROCEDURE: Brain W/WO INDICATIONS: SKULL LESION CONTRAST: IV CONTRAST: Gadavist ml: 13.5 TECHNIQUE: Noncontrast axial T1 spin echo, axial T2 fast spin echo, sagittal and axial FLAIR, coronal T2 fast sp in echo, axial gradient echo, axial diffusion and ADC through the brain. After the administration of contrast, axial and coronal T1 spin echo with fat saturation through the brain. COMPARISON: None. FINDINGS: Image quality: Excellent. CSF spaces: Basal cisterns are patent. No extra-axial fluid collections. Ventricles are normal in size and shape. Brain: No midline shift. No intracranial bleeds or masses. No abnormal intracranial enhancement. There is cerebral volume loss for age. There is periventricular white matter chronic small vessel is chemic change. The brainstem appears normal. Diffusion-weighted images demonstrate no acute ischemi c insults. No chronic ischemic insults. Normal intravascular flow voids are present. Skull and face: There is an enhancing ill-defined focus within the right parietal calvarium, measurin g roughly 12 mm oblique anteroposterior which demonstrates extension to the inner table of the calvar ium. No definite involvement of the underlying parietal lobe is present. Precontrast T1 sequences dem onstrate ill-defined high T1 signal intensity surrounding the lesion. Orbits appear normal. Sinuses: Sinuses and mastoids appear clear. IMPRESSION: 1. Enhancing right parietal calvarial focus. Finding may indicate metastatic disease versus an inflam matory or infectious process. Atypical hemangioma could also produce this appearance. 2. No acute process. No recent infarct. Reviewed by: Madonna Zhao MD on 12/06/2021 4:22 PM PDT Approved by: Madonna Zhao MD on 12/06/2021 4:22 PM PDT Station ID: [id number]
[2021-12-06] MEDS ORDERED: GADOBUTROL 15 MMOL/15 ML VIAL IVP ONE (16:52)
== END 2021-12-06 11:58 | disposition home or self-care (01) ==
LOC: DI 11:57
PROVIDERS: ATTEND Physician Assistant
DX: R90.89 Other abnormal findings on diagnostic imaging of central nervous system (principal); M89.9 Disorder of bone, unspecified
CPT/HCPCS: 36415; 70553; 82565; A9585

== ENCOUNTER 2022-01-19 09:51 | Outpatient (CLI) | payer MEDICARE ==
[2022-01-19 12:33] LABS: ALBUMIN/GLOBULIN RATIO 1.1 (1.0-2.2); ALKALINE PHOSPHATASE 37 IU/L (42-121); ALT ALANINE AMINOTRANSFERASE 15 IU/L (10-60); AST ASPARTATE AMINOTRANSFERASE 22 IU/L (10-42); BILIRUBIN,TOTAL 0.6 mg/dL (0.2-1.0); BUN - BLOOD UREA NITROGEN 16 mg/dL (6-20); CALCIUM 9.5 mg/dL (8.5-10.3); CARBON DIOXIDE - CO2 30 mmol/L (21-32); CHLORIDE 103 mmol/L (101-111); CHOL/HDL RATIO 3.4 (<4.4); CHOLESTEROL 183 mg/dL; CREATININE 1.1 mg/dL (0.4-1.0); GFR - MDRD 49 (>89); GLUCOSE 105 mg/dL (70-100); HDL CHOLESTEROL 54 mg/dL; LDL CHOLESTEROL,CALCULATED 98 mg/dL; LDL/HDL RATIO 1.8 (<4.4); POTASSIUM 4.3 mmol/L (3.5-5.0); SODIUM 142 mmol/L (135-145); TOTAL PROTEIN 7.8 g/dL (6.7-8.2); TRIGLYCERIDES 156 mg/dL; VLDL CHOLESTEROL 31 mg/dL
[2022-01-19 12:43] LABS: ESTIMATED AVERAGE GLUCOSE 134 mg/dL (70-100); HEMOGLOBIN A1c% 6.3 % (4.27-6.07)
[2022-01-19 12:52] LABS: THYROID STIMULATING HORMONE 1.37 uIU/mL (0.34-5.60)
== END 2022-01-19 09:52 | disposition home or self-care (01) ==
LOC: LAB.N 09:51
PROVIDERS: ATTEND Physician Assistant Medical
DX: E78.1 Pure hyperglyceridemia (principal); R73.03 Prediabetes; I48.0 Paroxysmal atrial fibrillation
CPT/HCPCS: 36415; 80053; 80061; 83036; 83721; 84443

== ENCOUNTER 2022-01-23 09:22 | Outpatient (CLI) | payer MEDICARE ==
[2022-01-23 10:49] VITALS: BP 132/79
--- NOTE | 2022-01-23 10:49 | SLEEP CARE CONSULTATION ---
Information from patient questionnaire entered by Jenny Reese MA. I have reviewed and concur with the information entered by Jenny Reese MA. This document represents the service I personally performed and the decisions made by me, Ashly Lopez MD, [facility]. History of Present Illness Service Date and Time: 01/23/2022 0922 Previous diagnosis: Moderate, Obstructive Sleep Apnea-Hypopnea Syndrome AHI: 18.8 (in 2000) Reason for follow up: annual (LAST SEEN 07/2020, RESMED, [facility] 07/05/20, ) Equipment type: BiPAP Equipment obtained from: [employer] Mask style: Nasal Prior sleep studies: Yes Year and Where: 2000 - [facility] Type of Sleep Study: Polysomnography HPI additional information: Ms. Carrera returned today for annual follow up of BiPAP therapy. She was diagnosed to have moderate obstructive sleep apnea-hypopnea syndrome. The patient gets her supplies from [employer]. She wears a Respironics Wisp nasal mask. She continues to use the ResMed AirCurve 10 nightly and all through the night. The compliance report shows usage in 365 nights out of the past 365 nights, averaging 7.3 hours a night. The > 4 hour compliance rate for the past 365 days is 99%. She complained of no particular problem with the device such as soreness on the face, dry nose, epistaxis, nasal congestion or headache. She thinks that the pressure of 12/8 cmH2O is comfortable. On the CPAP therapy she notices improvement in her sleep quality, and that she wakes up feeling fresher in the morning and more awake/alert during the day. [place] Sleepiness Scale score is 0. The average residual AHI is 0.5; and average air leak is 4.1 L/minute. Her device is 2 years old. Sleep Study - Results Type of Sleep Study: Polysomnography Prior sleep studies: Yes Year and Where: 2000 - [facility] CPAP Compliance Data - Data Reviewed with Patient Average duration of nightly device use: 7 HOURS 16 MINUTES Compliance rate %: 98 (09/22/21-01/19/2022) Current pressure setting (cmH2O): 12I/6E Average residual AHI: 0.4 Central apnea: .1 Obstructive apnea: .1 Hypopnea: .1 Average large leak: .3 Subjective Initial [place] Sleepiness Scale score: 7 (in 2012) Current [place] Sleepiness Scale score: 0 (01/23/2022) Allergies and Home Medications Known drug allergies: No (NKA) Drug allergies reviewed: Yes Home medication list reviewed: Yes Allergy and home medication list: Allergies No Known Drug Allergies Allergy (Verified 04/30/21 11:16) Review of Systems Review of systems same as previous: Yes Physical Exam Vital signs obtained and entered by: BONIFACIO ORR Blood Pressure: 132/79 (LEFT, PULSE 72, RESP 16, ) Heart Rate: 70 O2 Saturation: 96 (PAPER MASK) Height: 5 ft 7 in Weight: 290 lb (CLOTHES) Body Mass Index: 45.4 BMI Classification: Morbidly Obese Impression and Plan IMPRESSION: 1. Obstructive Sleep Apnea-Hypopnea Syndrome, moderate (AHI was 18.1 in 2000) with the patient continuing to do well on nasal CPAP therapy. She has excellent compliance and significant clinical improvement. The current pressure appears effective and comfortable. Overall, she is very satisfied with treatment and plans to continue with it long-term. No adjustment is necessary today. PLAN: 1. Continue with BiPAP set at 12/8 cmH2O. 2. Try to lose weight Return for follow up in a year or earlier if there is any problem. Follow up with Sleep Care in: 1 year Visit Type: In Office Time Spent with Patient (minutes): 20 Provider Statement: I spent 100% of the Face to Face Visit with the patient with greater than 50% spent counseling the patient and coordination of care.
== END 2022-01-23 09:23 | disposition home or self-care (01) ==
LOC: SC 09:22
PROVIDERS: ATTEND Internal Medicine Pulmonary Disease
DX: G47.33 Obstructive sleep apnea (adult) (pediatric) (principal); E61.1 Iron deficiency; E53.8 Deficiency of other specified B group vitamins
CPT/HCPCS: 36415; 82607; 82728; 99213; G0463; 99212

== ENCOUNTER 2022-01-23 13:05 | Outpatient (CLI) | payer MEDICARE ==
[2022-01-23 18:11] LABS: FERRITIN 22.9 ng/mL (11.0-306.8)
== END 2022-01-23 13:06 | disposition home or self-care (01) ==
LOC: LAB.N 13:05
PROVIDERS: ATTEND Physician Assistant Medical
DX: E61.1 Iron deficiency (principal); E53.8 Deficiency of other specified B group vitamins
CPT/HCPCS: 36415; 82607; 82728

== ENCOUNTER 2022-07-14 08:37 | Outpatient (CLI) | payer MEDICARE ==
[2022-07-14 08:56] LABS: BASOPHILS # (AUTO) 0.1 10^3/uL (0.0-0.1); BASOPHILS % (AUTO) 1.3 %; EOSINOPHILS # (AUTO) 0.2 10^3/uL (0.0-0.7); EOSINOPHILS % (AUTO) 3.1 %; HCT - HEMATOCRIT 46.1 % (37.0-47.0); LYMPHOCYTES # (AUTO) 1.7 10^3/uL (1.5-3.5); LYMPHOCYTES % (AUTO) 28.4 %; MEAN CORPUSCULAR HEMOGLOBIN 30.7 pg (27.0-31.0); MEAN CORPUSCULAR HGB CONC 32.5 g/dL (32.0-36.0); MEAN CORPUSCULAR VOLUME 94.3 fL (81.0-99.0); MEAN PLATELET VOLUME 11.3 fL (7.9-10.8); MONOCYTES # (AUTO) 0.5 10^3/uL (0.0-1.0); MONOCYTES % (AUTO) 8.6 %; NEUTROPHILS # (AUTO) 3.5 10^3/uL (1.5-6.6); NEUTROPHILS % (AUTO) 58.4 %; PLT - PLATELET COUNT 222 10^3/uL (130-450); RED BLOOD COUNT 4.89 10^6/uL (4.20-5.40); RED CELL DISTRIBUTION WIDTH 13.5 % (12.0-15.0); WHITE BLOOD COUNT 6.1 x10^3/uL (4.8-10.8)
[2022-07-14 09:18] LABS: BUN - BLOOD UREA NITROGEN 17 mg/dL (6-20); CARBON DIOXIDE - CO2 26 mmol/L (21-32); CHLORIDE 105 mmol/L (101-111); CHOL/HDL RATIO 3.7 (<4.4); CHOLESTEROL 165 mg/dL; CREATININE 0.9 mg/dL (0.4-1.0); GFR - MDRD 61 (>89); GLUCOSE 111 mg/dL (70-100); HDL CHOLESTEROL 45 mg/dL; LDL CHOLESTEROL,CALCULATED 92 mg/dL; POTASSIUM 4.2 mmol/L (3.5-5.0); SODIUM 139 mmol/L (135-145); TRIGLYCERIDES 142 mg/dL; VLDL CHOLESTEROL 28 mg/dL
[2022-07-14 13:23] LABS: ESTIMATED AVERAGE GLUCOSE 131 mg/dL (70-100); HEMOGLOBIN A1c% 6.2 % (4.27-6.07)
== END 2022-07-14 08:38 | disposition home or self-care (01) ==
LOC: LAB 08:37
PROVIDERS: ATTEND Internal Medicine Cardiovascular Disease
DX: I10 Essential (primary) hypertension (principal); R73.9 Hyperglycemia, unspecified; E53.8 Deficiency of other specified B group vitamins; E78.5 Hyperlipidemia, unspecified
CPT/HCPCS: 36415; 80048; 80061; 82607; 83036; 83721; 85025

== ENCOUNTER 2022-07-30 17:14 | Emergency (ER) | payer MEDICARE ==
[2022-07-30 17:26] VITALS: BP 124/97
--- NOTE | 2022-07-30 17:39 | ED Physician Documentation ---
PD HPI URI - Stated complaint Stated Complaint: COUGH,COLD - Chief complaint Chief Complaint: Resp - History obtained from History obtained from: Patient (She developed hoarse voice 6 days ago, subsequently got laryngitis and then it went down into her chest with more of a nonproductive cough. She checked herself for COVID on the first day which was negative. She denies fevers or shortness of breath.) PD PAST MEDICAL HISTORY - Past Medical History Cardiovascular: Hypertension Respiratory: Sleep apnea, CPAP use Endocrine/Autoimmune: None GI:  : None HEENT: Chronic vision loss, Dental implants Psych: None Musculoskeletal: None Derm: None - Past Surgical History General: Cholecystectomy Ortho: Knee replacement /[employer]: section - Present Medications Home Medications: Ambulatory Orders Medication Instructions Recorded Confirmed Atenolol 50 mg PO DAILY 01/07/16 01/10/16 Gabapentin 200 mg PO DAILY 01/07/16 01/10/16 Multivitamin [Multivitamins] 1 each PO DAILY 01/07/16 01/10/16 Lovastatin [Altoprev] 20 mg PO DAILY 01/10/16 01/10/16 guaiFENesin/CODEINE [Robitussin AC] 5 - 10 ml PO Q6H PRN #120 ml 07/30/22 - Allergies Allergies/Adverse Reactions: Allergies Allergy/AdvReac Type Severity Reaction Status Date / Time No Known Drug Allergies Allergy Verified 04/30/21 11:16 - Social History Does the pt smoke?: No Smoking Status: Never smoker PD ED PE NORMAL - Vitals Vital signs reviewed: Yes - General General: Alert and oriented X 3, No acute distress - HEENT HEENT: Other (Laryngitic voice but normal visualized oropharynx) - Cardiac Cardiac: RRR, No murmur - Respiratory Respiratory: No respiratory distress, Clear bilaterally - Abdomen Abdomen: Non tender - Derm Derm: Normal color, Warm and dry - Neuro Neuro: Alert and oriented X 3, Normal speech Results - Vitals Vitals: Vital Signs - 24 hr 07/30/22 17:19 Temperature 37 C Heart Rate 72 Respiratory 18 Rate Blood Pressure 124/97 H O2 Saturation 98 Oxygen O2 Source Room air - Labs Labs: Laboratory Tests 07/30/22 17:48 Nasal Adenovirus (PCR) NOT DETECTED Nasal B. parapertussis DNA (PCR) NOT DETECTED Nasal Coronavir 229E PCR NOT DETECTED Nasal Coronavir HKU1 PCR NOT DETECTED Nasal Coronavir NL63 PCR NOT DETECTED Nasal Coronavir OC43 PCR NOT DETECTED Nasal Enterovir/Rhinovir PCR NOT DETECTED Nasal Influenza B PCR NOT DETECTED Nasal Influenza A PCR NOT DETECTED Nasal Parainfluen 1 PCR NOT DETECTED Nasal Parainfluen 2 PCR NOT DETECTED Nasal Parainfluen 3 PCR NOT DETECTED Nasal Parainfluen 4 PCR NOT DETECTED Nasal RSV (PCR) NOT DETECTED Nasal B.pertussis DNA PCR NOT DETECTED Nasal C.pneumoniae (PCR) NOT DETECTED Holden Human Metapneumo PCR NOT DETECTED Nasal M.pneumoniae (PCR) NOT DETECTED Nasal SARS-CoV-2 (PCR) DETECTED A - Rads (name of study) 2 view chest x-ray is normal Radiology: Final report received, EMP read indepedently PD Medical Decision Making - ED course ED course: 72-year-old woman with basically a viral URI with cough. Normal exam save a laryngitic voice. Normal vitals. Patient was released prior to COVID test completion but I did call and speak with her about the results. She is out of the time window for consideration for antiviral therapy. Departure - Departure Disposition: 01 Home, Self Care Clinical Impression: COVID Upper respiratory tract infection Qualifiers: URI type: unspecified viral URI Qualified Code(s): J06.9 - Acute upper respiratory infection, unspecified Condition: Good Record reviewed to determine appropriate education?: Yes Instructions: ED Viral Syndrome Prescriptions: guaiFENesin/CODEINE [Robitussin AC] 5 - 10 ml PO Q6H PRN #120 ml PRN Reason: Cough Comments: I sent her prescription electronically to [facility] in [place]. Chest x-ray was normal ruling out pneumonia also with your clinical exam. You have a Covid test pending. You need to self quarantine until the result is done and negative. Do not leave your house. Do not get near anybody. The results should be done in 48 to 72 hours. We will call with a positive result, the fastest way to get a negative result for confirmation though is to go to the hospital website at [email or web address], click on the my [facility] tab and sign up for the patient portal. Discharge Date/Time: 07/30/22 18:41
--- NOTE | 2022-07-30 18:10 | XRAY Report ---
PROCEDURE: Chest 2 View X-Ray INDICATIONS: cough TECHNIQUE: 2 views of the chest were acquired. COMPARISON: None. FINDINGS: Surgical changes and devices: None. Lungs and pleura: No pleural effusions or pneumothorax. Lungs are clear. Mediastinum: Mediastinal contours are normal. Heart size is normal. Bones and chest wall: No suspicious bony abnormalities. Soft tissues appear unremarkable. IMPRESSION: Normal two-view chest x-ray Reviewed by: Antione Snowden MD on 07/30/2022 5:08 PM [facility] Approved by: Antione Snowden MD on 07/30/2022 5:08 PM [facility] Station ID: [id number]
[2022-07-30] MEDS ORDERED: guaiFENesin/CODEINE 5 ML UDC PO STA (18:30)
[2022-07-30 18:48] LABS: CORONAVIRUS 229E-RESP PCR NOT DETECTED; CORONAVIRUS HKU1-RESP PCR NOT DETECTED; CORONAVIRUS NL63-RESP PCR NOT DETECTED; CORONAVIRUS OC43-RESP PCR NOT DETECTED
[2022-07-30 18:49] LABS: SARS-CoV-2 -RESP PCR PANEL DETECTED
[2022-07-30 18:50] LABS: B. PARAPERTUSSIS- RESP PCR PAN NOT DETECTED; B. PERTUSSIS- RESP PCR PANEL NOT DETECTED; C. PNEUMONIAE- RESP PCR PANEL NOT DETECTED; HUMAN METAPNEUMOVIRUS NOT DETECTED; INFLUENZA A- RESP PCR PANEL NOT DETECTED; INFLUENZA B - RESP PCR PANEL NOT DETECTED; M. PNEUMONIAE- RESP PCR PANEL NOT DETECTED; PARAINFLUENZA VIRUS 1 NOT DETECTED; PARAINFLUENZA VIRUS 2 NOT DETECTED; PARAINFLUENZA VIRUS 3 NOT DETECTED; PARAINFLUENZA VIRUS 4 NOT DETECTED; RHINOVIRUS/ENTEROVIRUS NOT DETECTED; RSV- RESP PCR PANEL NOT DETECTED
== END 2022-07-30 18:41 | disposition home or self-care (01) ==
LOC: ED 17:14
DX: U07.1 COVID-19 (principal); J06.9 Acute upper respiratory infection, unspecified; I10 Essential (primary) hypertension
CPT/HCPCS: 71046; 87633; 99283; 99284; A9270

== ENCOUNTER 2022-12-04 11:14 | Outpatient (CLI) | payer MEDICARE | END 2022-12-04 11:15 | disposition home or self-care (01) | LOC: NS 11:14 | PROVIDERS: ATTEND Internal Medicine | DX: Z71.3 Dietary counseling and surveillance (principal); E66.9 Obesity, unspecified; Z68.41 Body mass index [BMI] 40.0-44.9, adult | CPT/HCPCS: 97802 ==

== ENCOUNTER 2023-01-08 09:11 | Outpatient (CLI) | payer MEDICARE ==
[2023-01-08 12:43] LABS: BASOPHILS # (AUTO) 0.1 10^3/uL (0.0-0.1); BASOPHILS % (AUTO) 1.2 %; EOSINOPHILS # (AUTO) 0.2 10^3/uL (0.0-0.7); HCT - HEMATOCRIT 43.2 % (37.0-47.0); HGB - HEMOGLOBIN 13.5 g/dL (12.0-16.0); LYMPHOCYTES # (AUTO) 1.6 10^3/uL (1.5-3.5); LYMPHOCYTES % (AUTO) 26.2 %; MEAN CORPUSCULAR HEMOGLOBIN 29.7 pg (27.0-31.0); MEAN CORPUSCULAR HGB CONC 31.3 g/dL (32.0-36.0); MEAN CORPUSCULAR VOLUME 94.9 fL (81.0-99.0); MEAN PLATELET VOLUME 12.1 fL (7.9-10.8); MONOCYTES # (AUTO) 0.4 10^3/uL (0.0-1.0); MONOCYTES % (AUTO) 7.2 %; NEUTROPHILS # (AUTO) 3.7 10^3/uL (1.5-6.6); NEUTROPHILS % (AUTO) 62.2 %; PLT - PLATELET COUNT 235 10^3/uL (130-450); RED BLOOD COUNT 4.55 10^6/uL (4.20-5.40); RED CELL DISTRIBUTION WIDTH 13.1 % (12.0-15.0)
[2023-01-08 13:32] LABS: FERRITIN 10.4 ng/mL (11.0-306.8)
[2023-01-08 13:43] LABS: ESTIMATED AVERAGE GLUCOSE 131 mg/dL (70-100); HEMOGLOBIN A1c% 6.2 % (4.27-6.07)
[2023-01-08 13:57] LABS: ALBUMIN 3.5 g/dL (3.2-5.5); ALBUMIN/GLOBULIN RATIO 0.8 (1.0-2.2); ALKALINE PHOSPHATASE 35 IU/L (42-121); ALT ALANINE AMINOTRANSFERASE 15 IU/L (10-60); AST ASPARTATE AMINOTRANSFERASE 21 IU/L (10-42); BILIRUBIN,TOTAL 0.5 mg/dL (0.2-1.0); BUN - BLOOD UREA NITROGEN 18 mg/dL (6-20); CARBON DIOXIDE - CO2 29 mmol/L (21-32); CHLORIDE 107 mmol/L (101-111); CHOLESTEROL 153 mg/dL; CREATININE 1.1 mg/dL (0.4-1.0); GFR - MDRD 48 (>89); GLUCOSE 103 mg/dL (70-100); HDL CHOLESTEROL 51 mg/dL; LDL CHOLESTEROL,CALCULATED 70 mg/dL; LDL/HDL RATIO 1.4 (<4.4); SODIUM 142 mmol/L (135-145); TOTAL PROTEIN 7.7 g/dL (6.7-8.2); TRIGLYCERIDES 161 mg/dL; VLDL CHOLESTEROL 32 mg/dL
== END 2023-01-08 09:12 | disposition home or self-care (01) ==
LOC: LAB.N 09:11
PROVIDERS: ATTEND Physician Assistant Medical
DX: E78.1 Pure hyperglyceridemia (principal); R73.9 Hyperglycemia, unspecified; E53.8 Deficiency of other specified B group vitamins
CPT/HCPCS: 36415; 80053; 80061; 82607; 82728; 83036; 83721; 85025

== ENCOUNTER 2023-01-24 08:32 | Outpatient (CLI) | payer MEDICARE ==
--- NOTE | 2023-01-24 09:03 | SLEEP CARE CONSULTATION ---
Information from patient questionnaire entered by Iliana Persaud. I have reviewed and concur with the information entered by Iliana Persaud. This document represents the service I personally performed and the decisions made by , Shira Donald ARNP. History of Present Illness Service Date and Time: 01/24/2023 0832 Previous diagnosis: Moderate, Obstructive Sleep Apnea-Hypopnea Syndrome AHI: 18.8 (in 2000) Reason for follow up: annual Equipment type: BiPAP (AirCurve 10; s/u 04/2022) Equipment obtained from: [employer] (getting supplies) Mask style: Nasal (Wisp) Mask brand: Respironics Backup mask available: Yes (spares) Last cushion change: in May Prior sleep studies: Yes Year and Where: 2000 - [facility] Type of Sleep Study: Polysomnography HPI additional information: CAROL FLORES was diagnosed to have moderate, AHI 18.8, obstructive sleep apnea- hypopnea syndrome and returned today for BIPAP therapy annual follow-up. Sleep Study - Results Type of Sleep Study: Polysomnography Prior sleep studies: Yes Year and Where: 2000 - [facility] CPAP Compliance Data - Data Reviewed with Patient Average duration of nightly device use: 7 hours 10 minutes Compliance rate %: 97 (69/70 days used) Current pressure setting (cmH2O): 12/6 with 4 support Average residual AHI: 0.3 Central apnea: 0.1 Obstructive apnea: 0.1 Average large leak: 0.9 L/min Subjective Missed days of use due to: reports: travel Patient concerns: reports: nasal congestion (in AM). denies: aerophagia, mask discomfort, air blowing in eyes, mask leak noise, condensation in mask/hose, dry mouth, nose, throat, epistaxis Observed to snore while using device: No Current pressure setting perceived as: comfortable On therapy, patient: reports: sleeping better, awakening more refreshed, being more awake and alert during the day, more rested overall. denies: drowsiness while driving Initial [place] Sleepiness Scale score: 7 (in 2012) Current [place] Sleepiness Scale score: 2 Allergies and Home Medications Known drug allergies: No Drug allergies reviewed: Yes Home medication list reviewed: Yes (no changes) Allergy and home medication list: Allergies No Known Drug Allergies Allergy Review of Systems Review of systems same as previous: Yes (new right hip in Oct if loses enough weight) Physical Exam Vital signs obtained and entered by: Shira Ragsdale NP Blood Pressure: 132/80 Cuff size: wrist (right) Heart Rate: 66 O2 Saturation: 93 Height: 5 ft 8 in Weight: 289 lb Body Mass Index: 43.9 BMI Classification: Morbidly Obese Impression and Plan 1. Obstructive Sleep Apnea-Hypopnea Syndrome, moderate, with good treatment compliance and good apnea control. On BIPAP therapy, the patient has better sleep quality and is more rested overall. Patient was traveling with her BIPAP and the airline lost her BiPAP. She purchased another BiPAP on her own and has been very compliant with using it. She is still waiting on the airline to reimburse her for her loss. Patient has significant improvement of their sleep apnea and is satisfied with current CPAP therapy. Patient denies problems with oral dryness, nasal congestion, epistaxis, skin irritation or aerophagia. Patient's apnea severity and rationale for treatment to reduce apnea, improve sleep quality and reduce cardiovascular and cerebrovascular events was reviewed. 2. Obesity, unspecified. Currently patients BMI is 43.9. Obesity increases the risk of apnea, BIPAP pressure requirements and overall health risks especially cardiovascular and diabetes. Thus patient is advised to continue to try to lose weight. * Continue BIPAP pressure at 12/6 cmH2O * Update supply prescription * Notify me if snoring with mask or feeling that the pressure is too much or too little * Attempt to lose weight * Call this office if any problems using BIPAP * Return for follow up in 1 year, or sooner if concerns arise Counseling Topics: Spare mask, Weight loss health impact Visit Type: In Office Time Spent with Patient (minutes): 24 Provider Statement: I spent 100% of the Face to Face Visit with the patient with greater than 50% spent counseling the patient and coordination of care.
[2023-01-24 09:08] VITALS: BP 132/80
== END 2023-01-24 08:33 | disposition home or self-care (01) ==
LOC: SC 08:32
PROVIDERS: ATTEND Nurse Practitioner Family
DX: G47.33 Obstructive sleep apnea (adult) (pediatric) (principal); E66.01 Morbid (severe) obesity due to excess calories; Z68.41 Body mass index [BMI] 40.0-44.9, adult
CPT/HCPCS: 99213; G0463; 99212

== ENCOUNTER 2023-03-14 08:25 | Outpatient (CLI) | payer MEDICARE ==
[2023-03-14 11:57] LABS: BASOPHILS # (AUTO) 0.1 10^3/uL (0.0-0.1); BASOPHILS % (AUTO) 1.1 %; EOSINOPHILS # (AUTO) 0.1 10^3/uL (0.0-0.7); EOSINOPHILS % (AUTO) 2.5 %; HCT - HEMATOCRIT 45.1 % (37.0-47.0); HGB - HEMOGLOBIN 14.5 g/dL (12.0-16.0); LYMPHOCYTES # (AUTO) 1.4 10^3/uL (1.5-3.5); LYMPHOCYTES % (AUTO) 26.1 %; MEAN CORPUSCULAR HEMOGLOBIN 30.4 pg (27.0-31.0); MEAN CORPUSCULAR HGB CONC 32.2 g/dL (32.0-36.0); MEAN CORPUSCULAR VOLUME 94.5 fL (81.0-99.0); MEAN PLATELET VOLUME 11.9 fL (7.9-10.8); MONOCYTES # (AUTO) 0.4 10^3/uL (0.0-1.0); NEUTROPHILS # (AUTO) 3.4 10^3/uL (1.5-6.6); NEUTROPHILS % (AUTO) 62.1 %; PLT - PLATELET COUNT 231 10^3/uL (130-450); RED BLOOD COUNT 4.77 10^6/uL (4.20-5.40); RED CELL DISTRIBUTION WIDTH 14.3 % (12.0-15.0); WHITE BLOOD COUNT 5.5 x10^3/uL (4.8-10.8)
[2023-03-14 12:35] LABS: FERRITIN 19.9 ng/mL (11.0-306.8)
== END 2023-03-14 08:26 | disposition home or self-care (01) ==
LOC: LAB.N 08:25
PROVIDERS: ATTEND Physician Assistant Medical
DX: E53.8 Deficiency of other specified B group vitamins (principal); E61.1 Iron deficiency
CPT/HCPCS: 36415; 82607; 82728; 85025